=== PATIENT | female | born 1945 | race Caucasian/White ===

== ENCOUNTER 2016-07-13 14:46 | Emergency (ER) | payer OTHER ==
[2016-07-13 15:04] VITALS: BP 131/64
[2016-07-13] MEDS ORDERED: ZOFRAN ODT PO ONE (15:57)
[2016-07-13] MEDS ORDERED: NORCO-5 PO ONE (15:57)
--- NOTE | 2016-07-13 16:02 | PROVIDER DOCUMENTATION ---
HPI-Musculoskeletal Pain/Inj - GENERAL Chief Complaint: Fall Stated Complaint: FALL/HIP PAIN Time Seen by Provider: 07/13/16 15:18 Source: patient - HX OF PRESENT ILLNESS-MUSKULOSKELTAL Nature of Presenting Problem: This pt presents today c complaints of R sided hip pain and bruising after a fall earlier this morning. She reports that she is ambulating but it hurts. No abnormal leg rotation or positioning. No loss of motor function or sensation. She denies any head injury or neck pain. She denies taking blood thinners. No other issues or complaints. Quality of Pain: reports: aching, sharp Severity in ED: moderate Onset/Duration: this morning Timing: still present Modifying Factors: improves with: movement, palpation Any recent injury?: Yes Locality of Occurance: Home Similar Symptoms Previously?: No Recently seen or treated by another doctor?: No Review of Systems - Adult - REVIEW OF SYSTEMS - ADULT Constitutional: reports: no symptoms reported. denies: chills, fever Eyes: reports: no symptoms reported. denies: discharge, dry eyes Ears, Nose, Mouth & Throat: reports: no symptoms reported. denies: ear discharge, ear pain Cardiovascular: reports: no symptoms reported. denies: chest pain, edema Respiratory: reports: no symptoms reported. denies: chronic cough, cough Gastrointestinal: reports: no symptoms reported. denies: abdominal pain, hematemesis Genitourinary: reports: no symptoms reported. denies: dysuria, discharge Musculoskeletal: reports: bone pain, joint pain. denies: back pain, muscle weakness, neck pain Integumentary: reports: see HPI. denies: hives, hair loss Neurological: reports: no symptoms reported. denies: ataxia, dizziness/vertigo , headache/migraines, syncope Psychiatric: reports: no symptoms reported. denies: anxiety, anti-depressant use Endocrine: reports: no symptoms reported Hematologic/Lymphatic: reports: no symptoms reported Allergic/Immunologic: reports: no symptoms reported All Other Systems: Reviewed and Negative Past History - Adult - PAST MEDICAL HISTORY-ADULT Review of Records: reports: Old Records Reviewed, Nursing Assessment Review, Medications Reviewed, Social history reviewed & non-contributory. Major Childhood Illnesses: reports: denies history Cardiovascular: reports: HTN, hyperlipidemia Respiratory: reports: denies history Gastrointestinal: reports: cholelithiasis Obstetrical/Gynecological: reports: denies history Genitourinary: reports: denies history Musculoskeletal: reports: denies history Neurological: reports: denies history Psychiatric: reports: bipolar, depression Endocrine/Immune: reports: denies history Other Conditions: reports: denies history - PRIOR SURGERIES/PROCEDURES Surgical/Procedure History: reports: cholecystectomy - IMMUNIZATION STATUS Childhood Immunizations: See Nurse Assessment Flu Vaccine: See Nurse Assessment Physical Exam-Injury Related - Physical Exam-Injury Related Initial Vital Signs Reviewed: Yes General Appearance: appears well, alert, no apparent distress Eyes: PERRL/EOMI, pink conjunctivae Head, Ears, Nose, Mouth & Throat: normocephalic/atraumatic, moist mucous membranes, normal ENT inspection Neck: non-tender, full range of motion, supple, normal inspection. negative: pain with axial compression, C-spine tenderness, limited range of motion, muscle spasm, pain on movement, vertebral point tenderness Respiratory: chest non-tender, lungs clear, normal breath sounds, no pleuratic chest pain, no respiratory distress, no accessory muscle use. negative: respiratory distress, decreased breath sounds, accessory muscle use, crackles, rales, rhonchi, stridor, wheezing Cardiovascular: normal peripheral pulses, regular rate, rhythm, no edema, no gallop, no JVD, no murmur. negative: bradycardia, tachycardia Abdominal Exam: normal bowel sounds, non tender, soft Back Exam: no CVA tenderness, no vertebral tenderness, scoliosis. negative: muscle spasm, vertebral tenderness Extremity: normal range of motion, swelling, tenderness. negative: pulse deficit, pedal edema Integumentary: warm/dry, blanching, contusion(s) Neurologic: grossly normal, no motor/sensory deficits. negative: facial droop, focal weakness, motor weakness, sensory deficit Psych/Mental Status: normal mood/affect, normal thought content, normal thought process, oriented x 3 Progress - PLAN OF CARE/RESULTS Progress/Plan/Lab Results: Orders Category Date Time Status XRAY PELVIS W/HIP 2-3VW RT [RAD] Stat Exams 07/13/16 15:05 Taken Hydrocodone/APAP 5 mg/325 mg [[place]-5] Med 07/13/16 15:57 Discontinued 1 each PO NOW ONE Ondansetron Odt [Zofran Odt] Med 07/13/16 15:57 Discontinued 4 mg PO NOW ONE Vital Signs Temp Pulse Resp BP Pulse Ox 07/13/16 15:03 98.0 F 83 16 131/64 99 Corticosteroids (Glucocorticoids) Allergy (Unknown, Verified 07/13/16 16:11) Unknown "STEROIDS", does not mix with other medications Bupropion S.r. [Wellbutrin Sr] 150 mg PO BID 11/20/14 Calcium Carbonate/Vitamin D3 [Calcium 600 + D Tablet] 1 tab PO BID 11/20/14 Divalproex E.r. [Depakote ER] 500 mg PO QHS 11/20/14 Docusate Sodium [Colace] 200 mg PO QHS 11/20/14 Fenofibric Acid D.r. [Trilipix] 135 mg PO DAILY 11/20/14 Multivitamin [Multi-Vitamin Daily] 1 tab PO QAM 11/20/14 Omeprazole 40 mg PO QAM 11/20/14 Venlafaxine HCl [Venlafaxine HCl ER] 150 mg PO DAILY 11/20/14 Carbamazepine [Epitol] 200 mg PO BID 02/13/16 Losartan Potassium 50 mg PO DAILY 02/13/16 Levothyroxine [Synthroid] 137 microgm PO DAILY #0 02/15/16 Polyethylene Glycol 3350 [Miralax] 17 gm PO QAM #0 powder, packet 02/15/16 Potassium Chloride E.r. [Klor-Con] 20 meq PO DAILY #0 tablet 02/15/16 Rivastigmine [Exelon 4.6MG/24Hrs] 1 each TD DAILY #0 patch 02/15/16 - XRAY 1 XRAY: Right XRAY Study: Pelvis, Hip XRAY Interpretation: no fx Departure - Departure Time of Disposition Order: 16:21 DIAGNOSIS: Contusion, hip and thigh Qualifiers: Encounter type: initial encounter Laterality: right Qualified Code(s): S70.01XA - Contusion of right hip, initial encounter; S70.11XA - Contusion of right thigh, initial encounter Disposition: HOME 01 Certified Medical Emergency: Urgent Condition: Good Additional Instructions: Take medication as prescribed. Follow up with an orthopedist as needed. Rest, ice and elevate leg. ED Follow Up Instructions: You have been treated by a care provider in the Emergency Department. These instructions are being provided to you so you can have an understanding of how to care for yourself upon discharge. Upon discharge from the Emergency Department, you are responsible for making arrangements for follow-up care by a physician of your choice. Take all prescribed medications as directed. Return to the Emergency Department immediately for any new or worsening symptoms. You may call the Physician Referral phone number at [phone] to obtain a list of Physicians who are taking new patients. Prescriptions: Orphenadrine [Norflex] 100 mg PO BID #14 tablet Acetaminophen with Codeine [Tylenol with Codeine #3] 1 each PO Q4H PRN PRN #12 tablet PRN Reason: Pain Referrals: Alexys Nunes MD [Primary Care Provider] - Dez Pham MD [STAFF PHYSICIAN] - Attestation - Physician/ MARA Attestation Patient care was provided by Advanced Practice Provider:: Yes Advanced Practice Provider:: Ramin Zarate Advanced Practice Provider documentation review:: The Mid-level provider documentation, treatment plan and medical decision making was reviewed by the physician who agrees with all treatment and medical decision making by the MLP.
--- NOTE | 2016-07-13 18:06 | Diag Imaging Result Document ---
PROCEDURE NAME: XRAY PELVIS W/HIP 2-3VW RT - 07/13/2016 STUDY: Pelvis and right hip, 2 views. No fracture. No dislocation. IMPRESSION: No acute bony injury.
== END 2016-07-13 17:14 | disposition home or self-care (01) ==
LOC: ED 14:46
DX: S70.01XA Contusion of right hip, initial encounter (principal); S70.11XA Contusion of right thigh, initial encounter; M25.551 Pain in right hip; M41.9 Scoliosis, unspecified; I10 Essential (primary) hypertension; E78.5 Hyperlipidemia, unspecified; F32.9 Major depressive disorder, single episode, unspecified; Z79.899 Other long term (current) drug therapy; W01.0XXA Fall on same level from slipping, tripping and stumbling without subsequent striking against object, initial encounter
CPT/HCPCS: 99283

== ENCOUNTER 2016-08-30 14:11 | Inpatient (IN) ==
[2016-08-30 15:04] LABS: URINE MICRO REVIEW NEEDED? NO; URINE SOURCE CLEAN CATCH
[2016-08-30 15:13] LABS: BILIRUBIN URINE NEGATIVE (NEGATIVE); BLOOD URINE NEGATIVE (NEGATIVE); COLOR YELLOW; GLUCOSE URINE NEGATIVE (NEGATIVE); LEUKOCYTES URINE MODERATE (NEGATIVE); NITRITE URINE NEGATIVE (NEGATIVE); PH URINE 6.5; PROTEIN URINE NEGATIVE (NEGATIVE); SP GRAVITY URINE 1.011; TURBIDITY URINE CLEAR (CLEAR); UROBILINOGEN URINE NORMAL (NORMAL)
[2016-08-30 15:15] LABS: UR EPITHELIAL CELLS <10 /HPF (<10); URINE BACTERIA NEGATIVE /HPF; URINE CULTURE NEEDED? YES; URINE RBC <10 /HPF (<10); URINE WBC <10 /HPF (<10)
[2016-08-30 15:27] LABS: MANUAL DIFF NEEDED? NO
[2016-08-30 15:32] LABS: BASO% 0.3 % (0.0-0.8); EOS# 0.07 X1000 (0.0-0.7); EOS% 1.9 % (0.0-10.0); HEMATOCRIT 36.3 % (37.0-47.0); HEMOGLOBIN 12.1 g/dL (12.0-16.0); LYMPH# 1.76 X1000 (1.2-3.4); LYMPH% 48.5 % (20.5-51.1); MCH 31.3 PG (27-31); MCHC 33.3 g/dL (33-37); MCV 93.8 FL (81-99); MONO# 0.51 X1000 (0.11-0.59); NEUT% 35.3 % (42.2-75.2); PLT 262 X1000 (130-400); RBC 3.87 XMIL (4.2-5.4)
[2016-08-30 16:07] LABS: AGAP 13; ALBUMIN 3.9 g/dL (3.5-5.0); ALKALINE PHOSPHATASE 42 U/L (32-104); BUN 13 mg/dL (8-22); CALCIUM 9.1 mg/dL (8.8-10.2); CHLORIDE 102 mmol/L (98-107); COSMO 278; GOT 23 U/L (10-30); GPT 15 U/L (10-36); MAGNESIUM 1.8 mg/dL (1.5-2.7); POTASSIUM 3.7 mmol/L (3.5-5.1); SODIUM 139 mmol/L (136-145); TCO2 24 mmol/L (25-35); TOTAL PROTEIN 6.3 g/dL (6.3-8.3)
[2016-08-30 16:27] LABS: FREE T4 1.35 ng/dL (0.93-1.70)
[2016-08-30 16:34] LABS: ACETAMINOPHEN < 1.2 ug/mL (10-30)
[2016-08-30] MEDS ORDERED: ROCEPHIN 1 GM/NS 1 GM/50 ML IVPB IV ONE (17:06)
--- NOTE | 2016-08-30 17:07 | PROVIDER DOCUMENTATION ---
This chart was entered by Debbie Huddleston Scribe, acting as scribe for Shyanne Israel MD. HPI-Psychological Disorder - General Chief Complaint: Psych Stated Complaint: DEPRESSED Time Seen by Provider: 08/30/16 14:49 Source: patient Allergies/Adverse Reactions: Patient Allergies Allergy/AdvReac Type Severity Reaction Status Date / Time Corticosteroids Allergy Unknown Unknown Verified 08/30/16 15:24 (Glucocorticoids) Home Medications: Home Medication List Medication Instructions Recorded Confirmed Last Taken Type Bupropion S.r. [Wellbutrin Sr] 150 mg PO BID 11/20/14 08/30/16 08/30/16 08:30 History Calcium Carbonate/Vitamin D3 1 tab PO BID 11/20/14 08/30/16 08/30/16 08:30 History [Calcium 600 + D Tablet] Divalproex E.r. [Depakote ER] 500 mg PO QHS 11/20/14 08/30/16 08/29/16 19:30 History Docusate Sodium [Colace] 200 mg PO QHS 11/20/14 08/30/16 08/28/16 History Fenofibric Acid D.r. [Trilipix] 135 mg PO DAILY 11/20/14 08/30/16 08/30/16 08: 30 History Multivitamin [Multi-Vitamin Daily] 1 tab PO QAM 11/20/14 08/30/16 08/30/16 08: 30 History Omeprazole 40 mg PO QAM 11/20/14 08/30/16 08/30/16 08:30 History Venlafaxine HCl [Venlafaxine HCl 150 mg PO DAILY 11/20/14 08/30/16 08/30/16 08: 30 History ER] Carbamazepine [Epitol] 200 mg PO BID 02/13/16 08/30/16 07/12/16 08:00 History Losartan Potassium 50 mg PO DAILY 02/13/16 08/30/16 08/30/16 08:30 History Levothyroxine [Synthroid] 137 microgm PO DAILY #0 02/15/16 08/30/16 08/30/16 08 :30 Rx Potassium Chloride E.r. [Klor-Con] 20 meq PO DAILY #0 tablet 02/15/16 08/30/16 08/30/16 08:30 Rx Loperamide [Imodium] 2 mg PO BID #10 capsule 08/29/16 08/30/16 08/29/16 19:30 Rx Ondansetron Odt [Zofran 4 mg Odt] 4 mg PO Q6H PRN PRN #10 tablet 08/29/1608/29/16 20:00 Rx Aspirin [Aspirin EC] 81 mg PO DAILY 08/30/16 08/30/16 08/30/16 08:30 History Divalproex Sodium [Divalproex 500 mg PO 08/30/16 Unknown History Sodium ER] Donepezil HCl 10 mg PO 08/30/16 08/30/16 08:30 History Hydrochlorothiazide 12.5 mg PO 08/30/16 Unknown History - History of Present Illness-Psych Nature of Presenting Problem: PT is a 71 yof who came to the ED with a cc of depression. Pt reports that since she has been sick she hasn't been able to take her antidepressants. Pt reports she can't make her thoughts stop. Onset/Duration: reports: this morning Timing: reports: still present Severity: reports: mild Situational problems related to:: reports: N/A Psychiatric Complaints: reports: depressed Substance Use: reports: none/never Similar Symptoms Previously?: Yes Recently seen or treated by another doctor?: Yes Review of Systems - Adult - REVIEW OF SYSTEMS - ADULT Constitutional: denies: chills, fever Eyes: reports: no symptoms reported Ears, Nose, Mouth & Throat: denies: epistaxis, mouth swelling Cardiovascular: reports: no symptoms reported Respiratory: reports: no symptoms reported Gastrointestinal: denies: diarrhea, nausea, vomiting Genitourinary: reports: no symptoms reported Musculoskeletal: reports: no symptoms reported Integumentary: reports: no symptoms reported Neurological: reports: no symptoms reported Psychiatric: reports: anxiety, depression. denies: emotional problems, suicidal thoughts Endocrine: reports: no symptoms reported Hematologic/Lymphatic: reports: no symptoms reported Allergic/Immunologic: reports: no symptoms reported All Other Systems: Reviewed and Negative Past History - Adult - PAST MEDICAL HISTORY-ADULT Review of Records: reports: Nursing Assessment Review Major Childhood Illnesses: reports: denies history Cardiovascular: reports: HTN, hyperlipidemia Respiratory: reports: denies history Gastrointestinal: reports: cholelithiasis Obstetrical/Gynecological: reports: denies history Genitourinary: reports: denies history Musculoskeletal: reports: denies history Neurological: reports: denies history Psychiatric: reports: bipolar, depression Endocrine/Immune: reports: thyroid disorder Other Conditions: reports: denies history - PRIOR SURGERIES/PROCEDURES Surgical/Procedure History: reports: cholecystectomy, back/neck (back) - IMMUNIZATION STATUS Childhood Immunizations: See Nurse Assessment Flu Vaccine: See Nurse Assessment - FAMILY HISTORY Family History: reviewed, not pertinent Physical Exam-Psych Focus - Physical Exam-Psych Initial Vital Signs Reviewed: Yes Appearance: no apparent distress, no memory impairment, alert, anxious Neurological: alert, calm Behavior/Eye Contact/Speech: cooperative HENMT: normocephalic/atraumatic, moist mucous membranes Neck: non-tender Respiratory: chest non-tender, lungs clear Cardiovascular: normal peripheral pulses, regular rate, rhythm Abdominal Exam: normal bowel sounds, non tender, soft Back Exam: normal inspection Extremity: normal range of motion, non-tender Integumentary: normal color Progress - PLAN OF CARE/RESULTS Progress/Plan/Lab Results: Vital Signs - 8 hr 08/30/16 14:15 Temperature 97.8 F Pulse Rate 71 Respiratory Rate 16 Blood Pressure 161/69 O2 Sat by Pulse Oximetry 99 Laboratory Results - last 24 hr 08/30/16 08/30/16 08/30/16 14:36 15:18 15:18 WBC 3.63 L RBC 3.87 L Hgb 12.1 Hct 36.3 L MCV 93.8 MCH 31.3 H MCHC 33.3 RDW Std Deviation 12.4 Plt Count 262 MPV 10.0 Immature Gran % (Auto) 0.0 Neut % (Auto) 35.3 L Lymph % (Auto) 48.5 [place] % (Auto) 14.0 H Eos % (Auto) 1.9 Baso % (Auto) 0.3 Immature Gran # (Auto) 0.00 Neut # (Auto) 1.28 L Lymph # (Auto) 1.76 [place] # (Auto) 0.51 Eos # (Auto) 0.07 Baso # (Auto) 0.01 Sodium 139 Potassium 3.7 Chloride 102 Carbon Dioxide 24 L Anion Gap 13 BUN 13 Creatinine 0.6 Estimated GFR/1.73 m2 > 60 BUN/Creatinine Ratio 22 Glucose 99 Calculated Osmolality 278 Calcium 9.1 Magnesium 1.8 Total Bilirubin 0.20 AST 23 ALT 15 Alkaline Phosphatase 42 Troponin T Total Protein 6.3 Albumin 3.9 Globulin 2.4 Albumin/Globulin Ratio 1.6 Vitamin B12 TSH Free T4 Urine Source CLEAN CATCH Urine Color YELLOW Urine Turbidity CLEAR Urine pH 6.5 Ur Specific [place] 1.011 Urine Protein NEGATIVE Ur Glucose (Stick) NEGATIVE Ur Ketones (Stick) NEGATIVE Urine Blood NEGATIVE Urine Nitrite NEGATIVE Urine Bilirubin NEGATIVE Urobilinogen Dipstick NORMAL Urine Leukocytes MODERATE A Urine WBC (Auto) <10 Urine RBC (Auto) <10 U Epithel Cells (Auto) <10 Urine Bacteria (Auto) NEGATIVE Salicylates Acetaminophen RPR 08/30/16 08/30/16 08/30/16 15:18 15:18 15:18 WBC RBC Hgb Hct MCV MCH MCHC RDW Std Deviation Plt Count MPV Immature Gran % (Auto) Neut % (Auto) Lymph % (Auto) [place] % (Auto) Eos % (Auto) Baso % (Auto) Immature Gran # (Auto) Neut # (Auto) Lymph # (Auto) [place] # (Auto) Eos # (Auto) Baso # (Auto) Sodium Potassium Chloride Carbon Dioxide Anion Gap BUN Creatinine Estimated GFR/1.73 m2 BUN/Creatinine Ratio Glucose Calculated Osmolality Calcium Magnesium Total Bilirubin AST ALT Alkaline Phosphatase Troponin T Total Protein Albumin Globulin Albumin/Globulin Ratio Vitamin B12 600 TSH 1.03 Free T4 1.35 Urine Source Urine Color Urine Turbidity Urine pH Ur Specific [place] Urine Protein Ur Glucose (Stick) Ur Ketones (Stick) Urine Blood Urine Nitrite Urine Bilirubin Urobilinogen Dipstick Urine Leukocytes Urine WBC (Auto) Urine RBC (Auto) U Epithel Cells (Auto) Urine Bacteria (Auto) Salicylates < 3.00 L Acetaminophen < 1.2 L RPR NON-REACTIVE 08/30/16 15:18 WBC RBC Hgb Hct MCV MCH MCHC RDW Std Deviation Plt Count MPV Immature Gran % (Auto) Neut % (Auto) Lymph % (Auto) [place] % (Auto) Eos % (Auto) Baso % (Auto) Immature Gran # (Auto) Neut # (Auto) Lymph # (Auto) [place] # (Auto) Eos # (Auto) Baso # (Auto) Sodium Potassium Chloride Carbon Dioxide Anion Gap BUN Creatinine Estimated GFR/1.73 m2 BUN/Creatinine Ratio Glucose Calculated Osmolality Calcium Magnesium Total Bilirubin AST ALT Alkaline Phosphatase Troponin T < 0.010 Total Protein Albumin Globulin Albumin/Globulin Ratio Vitamin B12 TSH Free T4 Urine Source Urine Color Urine Turbidity Urine pH Ur Specific [place] Urine Protein Ur Glucose (Stick) Ur Ketones (Stick) Urine Blood Urine Nitrite Urine Bilirubin Urobilinogen Dipstick Urine Leukocytes Urine WBC (Auto) Urine RBC (Auto) U Epithel Cells (Auto) Urine Bacteria (Auto) Salicylates Acetaminophen RPR Orders Category Date Time Status Saline Loc NOW Care 08/30/16 15:37 Active ACETAMINOPHEN [TDM] Stat Lab 08/30/16 15:18 Completed CBC WITH ELECTRONIC DIFF [HEME] Stat Lab 08/30/16 15:18 Completed COMPREHENSIVE METABOLIC PANEL [CHEM] Stat Lab 08/30/16 15:18 Completed FOLATE Stat Lab 08/30/16 15:18 Received FREE T4 Stat Lab 08/30/16 15:18 Completed MAGNESIUM [CHEM] Stat Lab 08/30/16 15:18 Completed RPR [SERO] Stat Lab 08/30/16 15:18 Completed SALICYLATES [TDM] Stat Lab 08/30/16 15:18 Completed TROPONIN T Stat Lab 08/30/16 15:18 Completed TSH Stat Lab 08/30/16 15:18 Completed URINALYSIS W/POSS RFLX CULT-1 [URINALYSIS] Stat Lab 08/30/16 14:36 Completed URINE CULTURE [RM] Routine Lab 08/30/16 15:16 Received VITAMIN B12 Stat Lab 08/30/16 15:18 Completed Rocephin 1 gm/Ns IV Now Med 08/30/16 17:06 Ordered CefTRIAXONE 1 GM/NS [Rocephin 1 gm/Ns] 1 gm in 50 ml IV NOW EKG [EKG] Stat Ther 08/30/16 14:45 Ordered Result Diagrams: 08/30/16 15:18 08/30/16 15:18 - CONSULTS/PCP/HOSPITALIST Notification Time Discussed: 17:06 Reason/Comments: Admit to Dr. Echevarria Consult Disposition: Admit Departure - Departure Time of Disposition Decision: 17:06 DIAGNOSIS: UTI (urinary tract infection) Qualifiers: Urinary tract infection type: acute cystitis Hematuria presence: without hematuria Qualified Code(s): N30.00 - Acute cystitis without hematuria Altered mental status Qualifiers: Altered mental status type: unspecified Qualified Code(s): R41.82 - Altered mental status, unspecified Disposition: ADMITTED INPATIENT Certified Medical Emergency: Emergent Condition: Stable Referrals and Follow-Ups: Alexys Nunes MD [Primary Care Provider] - - Critical Care Note This patient required my direct personal management.: No This chart was documented by the indicated scribe, (Debbie Huddleston Scribe) and accurately reflects the services I performed and decisions made by me, Shyanne Israel MD, as attested by the provider's signature.
[2016-08-30] MEDS ORDERED: ZOFRAN ODT PO PRN (19:33)
[2016-08-30] MEDS ORDERED: PROTONIX IV SCH (19:45)
[2016-08-30] MEDS ORDERED: SODIUM CHLORIDE 0.9% INJ SCH (19:45)
[2016-08-30] MEDS ORDERED: ATIVAN IV ONE (20:02)
--- NOTE | 2016-08-30 20:54 | HISTORY AND PHYSICAL ---
ATTENDING PHYSICIAN: Dr. Nunes. CHIEF COMPLAINT: Altered mental status. Depression. Gastroenteritis. UTI symptoms. HISTORY OF PRESENT ILLNESS: She is a 71-year-old white female, was seen yesterday for abdominal pain, nausea, vomiting, diarrhea, possible UTI. Patient was seen by Dr. Benavides. Sent home on loperamide and symptomatic treatment. Family brought her back today with altered mental status. Not able to do anything at home. She lives by herself. She has been suffering from chronic bipolar disorder with depression under the care of Dr. Morel. The family was afraid to take her home. Basically admitted to the hospital with altered mental status, #1 IV fluids, IV antibiotics and also needs psych consult. Upon questioning patient denies of any symptoms. PAST MEDICAL HISTORY: Bipolar disorder, hyperlipidemia, acid reflux disease, hypertension, hypothyroidism, mild cognitive impairment, history of trigeminal neuralgia. PAST SURGICAL HISTORY: Reported left breast lumpectomy, thyroidectomy, back surgery. MEDICATIONS ARE: Wellbutrin 150 p.o. b.i.d., Effexor 150 daily, Colace 100 two tablets at bedtime, Trilipix 135 daily, Depakote 500 bedtime, Depakote 500 p.o. b.i.d., aspirin 81 mg daily, Aricept 10 daily, hydrochlorothiazide 12.5 daily, Synthroid 137 mcg daily , carbamazepine 200 p.o. b.i.d., Prilosec 40 daily, losartan 50 daily, multivitamin 1 tablet daily. ALLERGIES: Corticosteroid. SOCIAL HISTORY: Single, lives in [place], retired. No smoking. No alcohol. from lung cancer 4 years ago. She has 1 son. FAMILY HISTORY: Both parents of old age. REVIEW OF SYSTEMS: HEENT: No headache. No vision problem. No earache. No sore throat. Neck: No goiter. No lymphadenopathy. No bruit. Cardiopulmonary: No chest pain, shortness of breath, PND, orthopnea. GI: No nausea, vomiting, abdominal pain. : No dysuria, hesitancy, frequency, hematuria. No swelling of legs. No joint pain. Neurologic: No focal symptoms or weakness. EXAMINATION: Vitals: Stable, afebrile, blood pressure slightly running high 160/64, 5 feet 5, 160 pounds, pulse oximetry 99% on room air. HEENT: Atraumatic, normocephalic. Pupils equal, react to light. TMs are normal. Nose and throat within normal limits. Neck: Supple. No lymphadenopathy. No goiter. Thyroid scar present. Chest: Clear to auscultation. Heart: Sounds are regular. Belly: Soft, nontender. No signs of peritonitis. Umbilical hernia noted. Extremities: No peripheral edema, cyanosis, clubbing. Neuro: No obvious neurological deficits. INVESTIGATIONS: CBC. White cell count 3.6, hematocrit 36, platelet 262,000. SMA 7 is normal. LFTs were normal. Folate 35.8, B12 is normal. Thyroid function normal. Urinalysis is moderate leukocytes. Salicylate, acetaminophen normal, RPR nonreactive. Abdomen x-ray is stable. ASSESSMENT AND PLAN: 1. 71-year-old white female admitted to the hospital with altered mental status due to gastroenteritis, possible urinary tract infection, was treating outpatient, not able to improve impending dehydration. IV fluids. 2. Deep vein thrombosis prophylaxis with Lovenox. 3. Gastrointestinal prophylaxis with IV Protonix. 4. History of bipolar disorder and depression under Dr. Morel. Check the levels of Depakote. Psych consult. 5. Trigeminal neurology on carbamazepine. 6. Hypothyroidism on Synthroid on 137 mcg once a day. Normal thyroid function tests. 7. Reconcile home medications and discussed with the patient's son and daughter- in-law at bedside and will follow up and Dr. Nunes is also follow up on Thursday. cc: MD Alexys Patterson MD [facility]
[2016-08-30] MEDS ORDERED: DEPAKOTE ER PO SCH (21:00)
[2016-08-30] MEDS ORDERED: COLACE PO SCH (21:00)
[2016-08-30] MEDS: DEPAKOTE ER PO SCH (21:29)
[2016-08-30] MEDS: WELLBUTRIN SR PO SCH (21:29)
[2016-08-30] MEDS: NS 1,000 ML IV SCH (21:30)
[2016-08-30] MEDS: TEGRETOL PO SCH (21:30)
[2016-08-30] MEDS: CALTRATE 600 + D PO SCH (21:30)
[2016-08-31 05:53] LABS: MANUAL DIFF NEEDED? NO
[2016-08-31 05:59] LABS: BASO% 0.3 % (0.0-0.8); EOS% 2.6 % (0.0-10.0); HEMOGLOBIN 11.5 g/dL (12.0-16.0); LYMPH# 2.02 X1000 (1.2-3.4); LYMPH% 52.2 % (20.5-51.1); MCH 31.1 PG (27-31); MCHC 32.9 g/dL (33-37); MCV 94.6 FL (81-99); MONO# 0.59 X1000 (0.11-0.59); MONO% 15.2 % (1.7-9.3); MPV 9.8 FL (7.4-10.4); NEUT% 29.7 % (42.2-75.2); PLT 238 X1000 (130-400)
[2016-08-31 06:18] LABS: AGAP 12; BUN 12 mg/dL (8-22); CALCIUM 8.9 mg/dL (8.8-10.2); CHLORIDE 104 mmol/L (98-107); COSMO 283; SODIUM 142 mmol/L (136-145); TCO2 26 mmol/L (25-35)
[2016-08-31] MEDS ORDERED: SYNTHROID PO SCH (07:00)
[2016-08-31] MEDS: NS 1,000 ML IV SCH (08:15)
[2016-08-31] MEDS: CALTRATE 600 + D PO SCH (08:40)
[2016-08-31] MEDS: DEPAKOTE ER PO SCH (08:40)
[2016-08-31] MEDS: TEGRETOL PO SCH (08:41)
[2016-08-31] MEDS: WELLBUTRIN SR PO SCH (08:41)
[2016-08-31] MEDS ORDERED: HYDROCHLOROTHIAZIDE PO SCH (09:00)
[2016-08-31] MEDS ORDERED: EFFEXOR XR PO SCH (09:00)
[2016-08-31] MEDS ORDERED: COZAAR PO SCH (09:00)
[2016-08-31] MEDS ORDERED: LOVENOX SUBQ SCH (09:00)
[2016-08-31] MEDS ORDERED: TRILIPIX PO SCH (09:00)
[2016-08-31] MEDS ORDERED: ASPIRIN EC PO SCH (09:00)
[2016-08-31] MEDS ORDERED: THERA M PLUS PO SCH (09:00)
[2016-08-31] MEDS ORDERED: KLOR-CON PO SCH (09:00)
[2016-08-31] MEDS ORDERED: ARICEPT PO SCH (09:00)
[2016-08-31 11:18] VITALS: BP 142/53
--- NOTE | 2016-08-31 15:32 | PROGRESS NOTE ---
DATE: 08/31/2016 SUBJECTIVE: Last night patient was not able to sleep. I have given 1 mg of Ativan. She had good sleep. REVIEW OF SYSTEMS: No UTI symptoms. No gastroenteritis symptoms. Review of systems, none reported. PHYSICAL EXAMINATION: Vital signs: She is afebrile. Vitals are stable. Input and output are 811. HEENT: Within normal limits. Neck: Supple. No lymphadenopathy. Chest: Clear. Heart: Sounds are regular. Abdomen: Belly is soft, nontender. Good bowel sounds. No masses palpable. Extremities: No peripheral edema, cyanosis, clubbing. Neurologic: Nonfocal. Her affect is very flat and depressed. INVESTIGATIONS: CBC: White cell count 3.8, hematocrit 35, platelets 238,000. SMA7 is normal. Urine cultures were negative. ASSESSMENT AND PLAN: 1. Gastroenteritis, improving. 2. Dysuria, no evidence of infection. 3. Bipolar with depression, not able to improve with present medical regimen. Patient is medically stable. Discussed with patient's family. She will be [facility] to the [facility] today. Continue present medical therapy. LEVEL OF DOCUMENTATION: 35 minutes. cc: MD Alexys Patterson MD
[2016-08-31 22:28] LABS: MAGNESIUM 1.8 mg/dL (1.5-2.7)
== END 2016-08-31 18:27 ==
LOC: ED 14:11 → 4N 17:22
PROVIDERS: ADMIT Internal Medicine; ATTEND Internal Medicine

== ENCOUNTER 2018-07-07 15:19 | Observation (INO) ==
[2018-07-07] MEDS ORDERED: PROTONIX IV SCH (16:45)
[2018-07-07] MEDS ORDERED: SODIUM CHLORIDE 0.9% INJ SCH (16:45)
[2018-07-07] MEDS ORDERED: NS + KCL 20 MEQ 1,000 ML IV SCH ×2 (17:00→20:00)
--- NOTE | 2018-07-07 17:02 | EKG Report ---
Test Performed on : 07/07/2018 4:57:39 PM Test Reason : ABD PAIN Blood Pressure : / mmHG Vent. Rate : 077 BPM Atrial Rate : 077 BPM P-R Int : 182 ms QRS Dur : 086 ms QT Int : 370 ms P-R-T Axes : 045 055 065 degrees QTc Int : 418 ms Normal sinus rhythm. Normal ECG When compared with ECG of 01-SEP-2016 04:55, No significant change was found Unconfirmed Result
[2018-07-07 17:28] LABS: BASO# 0.02 X1000 (0.0-0.2); BASO% 0.3 % (0.0-0.8); EOS# 0.12 X1000 (0.0-0.7); EOS% 1.9 % (0.0-10.0); HEMATOCRIT 37.4 % (37.0-47.0); HEMOGLOBIN 12.4 g/dL (12.0-16.0); IMM GRAN# 0.04 X1000 (0.0-0.04); IMM GRAN% 0.6 % (0.0-0.5); LYMPH# 2.06 X1000 (1.2-3.4); LYMPH% 32.5 % (20.5-51.1); MCH 30.2 PG (27-31); MCHC 33.2 g/dL (33-37); MCV 91.2 FL (81-99); MONO% 11.1 % (1.7-9.3); MPV 9.6 FL (7.4-10.4); NEUT# 3.39 X1000 (1.4-6.5); NEUT% 53.6 % (42.2-75.2); PLT 346 X1000 (130-400); RDW 12.7 % (11.5-14.5); WBC 6.33 X1000 (4.8-10.8)
[2018-07-07 17:37] LABS: INR 0.99; PROTIME 13.9 Seconds (11.0-16.0)
[2018-07-07 17:38] LABS: PTT 27.9 Seconds (22.3-41.8)
[2018-07-07 17:40] LABS: AGAP 12; ALB/GLOB RATIO 1.8; ALKALINE PHOSPHATASE 113 U/L (32-104); BUN 11 mg/dL (8-22); CHLORIDE 97 mmol/L (98-107); COSMO 261; CREATININE 0.6 mg/dL (0.5-0.9); ESTIMATED GFR > 60; GLUCOSE 111 mg/dL (70-104); GOT 69 U/L (10-30); GPT 69 U/L (10-36); MAGNESIUM 1.6 mg/dL (1.5-2.7); SODIUM 130 mmol/L (136-145); TCO2 21 mmol/L (25-35); TOTAL BILIRUBIN 0.24 mg/dL (0.20-1.00); TOTAL PROTEIN 6.2 g/dL (6.3-8.3)
[2018-07-07] MEDS: FLAGYL 500 MG/NS 500 MG/100 ML IVPB IV SCH (17:56)
[2018-07-07] MEDS: COLACE PO SCH (20:41)
[2018-07-07] MEDS: CALTRATE 600 + D PO SCH (20:41)
[2018-07-07] MEDS: TEGRETOL PO SCH (20:41)
[2018-07-07] MEDS: ARICEPT PO SCH (20:41)
[2018-07-07] MEDS: LOPID PO SCH (20:41)
--- NOTE | 2018-07-07 20:55 | HISTORY AND PHYSICAL ---
CHIEF COMPLAINT: Diarrhea. HISTORY OF PRESENT ILLNESS: Ms. Saravia is a 73-year-old white female patient not doing well since Thursday. The patient went to stay with her son. She started having diarrhea multiple times, watery stool. There was no blood or mucus, according to the patient. No high-grade fever, questionable chills. The patient went multiple times. She took some Imodium. Her diarrhea got some better, but then when she started eating, diarrhea came back. The patient did have vague abdominal pain. Oral intake was poor. The patient was not taking even her medicine. Everything she was eating was coming out. The patient was feeling weak. She did have abdominal bloating, at times distention, vague abdominal pain. The patient was brought to the office for evaluation. I evaluated the patient. The patient seemed to have clinical dehydration. Also some tenderness in the right lower quadrant and colonic area, and I decided to admit the patient for observation and further care. According to the sister, her stool had bad odor, and she was concerned about C. difficile colitis. No dysuria or hematuria. No vaginal discharge. The patient did have abdominal distention and bloating, vague abdominal pain. Did have some chills but no documented fever. No typical chest pain, palpitations, orthopnea, or PND. No unusual cough, expectoration, or hemoptysis. The patient was complaining of dull headache. No runny nose, stuffy nose, sinus drainage. No heat or cold intolerance. No further history available at this time. ALLERGIES: Glucocorticoids. MEDICATIONS: Her home medication includes aspirin, calcium with vitamin D, carbamazepine, Colace, Aricept, Cymbalta, gemfibrozil, hydrochlorothiazide, Synthroid, Cozaar, Singulair, multivitamin, Zyprexa, Prilosec, potassium, and vitamin D. PAST MEDICAL HISTORY: 1. Hypertension. 2. Hyperlipidemia. 3. Mood disorder. 4. Gastritis and reflux disease. 5. Hypothyroidism. 6. Recurrent UTI. 7. Bipolar disorder. 8. Trigeminal neuralgia. PAST SURGICAL HISTORY: The patient had left breast lumpectomy, thyroidectomy, and back surgery. SOCIAL HISTORY: Single. Lives by herself. Her sister helps her significantly. Nonsmoker. Denied alcohol or substance abuse. FAMILY HISTORY: Significant for both the parents of old age. REVIEW OF SYSTEMS: As per HPI. PHYSICAL EXAMINATION: GENERAL APPEARANCE: An elderly white female patient in mild distress. VITAL SIGNS: Blood pressure 151/73, pulse 81, respirations 16, temperature 98.2 degrees. SKIN: Senile turgor. No rash or petechiae. HEENT: Head atraumatic, normocephalic. [place] conjunctivae. Anicteric sclerae. Extraocular muscle movement normal. Fundus cannot be penetrated. Good oral hygiene. Dry oral mucosa. No tonsillopharyngeal congestion or exudate. Ears and nose benign. NECK: Supple. No JVD, thyromegaly, or lymphadenopathy. CHEST: Bilateral good air entry present. No rales. Bibasilar crepitations. CARDIOVASCULAR: S1 and S2 heard. No gallop or thrill. ABDOMEN: Soft, globular. Mild distention. Bowel sounds present. The patient does have tenderness, right lower quadrant. No guarding or rigidity. RECTAL EXAM: Deferred. EXTREMITIES: No cyanosis or clubbing. Minimal swelling around ankle. No acute DVT. CENTRAL NERVOUS SYSTEM: Alert, awake. Able to move all 4 limbs. The patient does have tremors. No acute synovitis. LABORATORIES: Her lab data revealed hyponatremia. AST and ALT was 69, minimally elevated. Alkaline phosphatase 113. PT/INR 0.99, PTT 27.9. CBC: WBC count 6.33, hemoglobin 12.4, hematocrit 37.4. CONSIDERATION: 1. Diarrhea. 2. Colitis. 3. Clinical dehydration. The patient does have: 1. Hypertension. 2. Hyperlipidemia. 3. Hypothyroidism. 4. Bipolar disorder. 5. Low back pain. PLAN: Admit patient. IV hydration. Close observation. Continue home medicine. Check appropriate labs. We will check stool for C. difficile toxin. Started her on Flagyl. Overall plan discussed at length with patient and sister, and they are in agreement. cc: Alexys Nunes MD
[2018-07-07] MEDS ORDERED: THERA M PLUS PO SCH (21:00)
[2018-07-07] MEDS ORDERED: ZYPREXA PO SCH (21:00)
[2018-07-07 21:37] LABS: URINE SOURCE CLEAN CATCH
--- NOTE | 2018-07-07 21:50 | Diag Imaging Result Doc PS360 ---
EXAM: ABDOMEN FLAT/UPRIGHT HISTORY: ABD PAIN TECHNIQUE: Flat and upright, two views COMPARISON: None. FINDINGS: No free air beneath the diaphragm. The gallbladder has been removed. Nonspecific bowel gas pattern. No organomegaly. No foreign body. IMPRESSION: No acute abnormality identified. Electronically signed by Ryne Solorio 07/07/2018 9:48 PM
--- NOTE | 2018-07-07 21:58 | Diag Imaging Result Doc PS360 ---
EXAM: CHEST-2 VIEWS HISTORY: ABD PAIN TECHNIQUE: Chest two views COMPARISON: 05/05/2017 FINDINGS: The lungs are well expanded. The heart is not enlarged. The vessels are not distended. There are no infiltrates. No pleural effusions. Moderate scoliosis. There is a calcified granuloma in the right lung base. IMPRESSION: No acute abnormality. Electronically signed by Ryne Solorio 07/07/2018 9:56 PM
--- NOTE | 2018-07-07 22:12 | Diag Imaging Result Doc PS360 ---
EXAM: CT ABD/PELVIS W/IV CONT ONLY HISTORY: ABD PAIN TECHNIQUE: CT abdomen and pelvis with intravenous contrast COMPARISON: 01/14/2016 FINDINGS: The gallbladder has been removed. There is fatty infiltration of the liver. Normal spleen, pancreas, adrenal glands, and kidneys. No hydronephrosis. No aortic aneurysm. Moderate atherosclerosis. Normal appendix. No abscess. Nonspecific bowel gas pattern. The bowel loops are not dilated. No ascites. Urinary bladder is mild moderately distended. There are small uterine fibroids. Neither ovary is enlarged. IMPRESSION: 1.Fatty infiltration of the liver 2.Cholecystectomy 3.Small uterine fibroids This exam was performed using automated exposure control, adjustment of mA or kV according to patient size, and/or use of iterative reconstruction technique. Electronically signed by Ryne Solorio 07/07/2018 10:10 PM
[2018-07-07 22:24] LABS: BILIRUBIN URINE NEGATIVE (NEGATIVE); BLOOD URINE NEGATIVE (NEGATIVE); COLOR YELLOW; GLUCOSE URINE NEGATIVE (NEGATIVE); KETONE URINE NEGATIVE (NEGATIVE); LEUKOCYTES URINE TRACE (NEGATIVE); NITRITE URINE NEGATIVE (NEGATIVE); PROTEIN URINE NEGATIVE (NEGATIVE); TURBIDITY URINE CLEAR (CLEAR); UROBILINOGEN URINE NORMAL (NORMAL)
[2018-07-07 22:25] LABS: UR EPITHELIAL CELLS <10 /HPF (<10); URINE BACTERIA NEGATIVE /HPF; URINE RBC <10 /HPF (<10); URINE WBC <10 /HPF (<10)
[2018-07-08] MEDS: FLAGYL 500 MG/NS 500 MG/100 ML IVPB IV SCH ×2 (01:11→09:53)
[2018-07-08 06:22] LABS: BASO# 0.01 X1000 (0.0-0.2); BASO% 0.2 % (0.0-0.8); EOS# 0.16 X1000 (0.0-0.7); EOS% 3.2 % (0.0-10.0); HEMATOCRIT 35.5 % (37.0-47.0); HEMOGLOBIN 11.6 g/dL (12.0-16.0); IMM GRAN# 0.03 X1000 (0.0-0.04); IMM GRAN% 0.6 % (0.0-0.5); LYMPH# 2.15 X1000 (1.2-3.4); LYMPH% 42.5 % (20.5-51.1); MCHC 32.7 g/dL (33-37); MCV 91.7 FL (81-99); MONO# 0.65 X1000 (0.11-0.59); MONO% 12.8 % (1.7-9.3); MPV 9.6 FL (7.4-10.4); NEUT# 2.06 X1000 (1.4-6.5); NEUT% 40.7 % (42.2-75.2); PLT 316 X1000 (130-400); RBC 3.87 XMIL (4.2-5.4); RDW 12.9 % (11.5-14.5); WBC 5.06 X1000 (4.8-10.8)
[2018-07-08 06:45] LABS: CHOLESTEROL 92 mg/dL (0-200); HDL 32 mg/dL (45-65); LDL 49 mg/dL; TRIGLYCERIDES 56 mg/dL (35-135); VLDL 11 mg/dL
[2018-07-08 06:47] LABS: AGAP 12; ALB/GLOB RATIO 1.6; ALBUMIN 3.6 g/dL (3.5-5.0); ALKALINE PHOSPHATASE 97 U/L (32-104); BUN 10 mg/dL (8-22); CALCIUM 7.7 mg/dL (8.8-10.2); CHLORIDE 103 mmol/L (98-107); COSMO 270; CREATININE 0.4 mg/dL (0.5-0.9); ESTIMATED GFR > 60; GLUCOSE 87 mg/dL (70-104); GOT 57 U/L (10-30); GPT 56 U/L (10-36); POTASSIUM 4.1 mmol/L (3.5-5.1); SODIUM 136 mmol/L (136-145); TCO2 21 mmol/L (25-35); TOTAL BILIRUBIN 0.21 mg/dL (0.20-1.00); TOTAL PROTEIN 5.8 g/dL (6.3-8.3)
--- NOTE | 2018-07-08 06:52 | PROGRESS NOTE ---
DATE: 07/08/2018 SUBJECTIVE: Ms. Saravia is feeling better. Her abdominal pain and diarrhea improved. Patient claims she has not had any bowel movement since she has been in the hospital. No nausea or vomiting. The patient does feel hungry. No high-grade fever or chills. No typical chest pain. OBJECTIVE: Vital Signs: Her vital signs noted. Neck: Supple. No JVD. Lungs: Bilateral good air entry present. CVS: S1 and S2 heard. Abdomen: Soft, nontender. Bowel sounds present. Extremities: No cyanosis, clubbing. No acute DVT. SOD STRIPPER: Alert, awake. Able to move all 4 limbs. Laboratory Data: CBC done this morning reviewed. Her CT scan was unremarkable. It did show fatty infiltration of the liver, cholecystectomy, small uterine fibroid. Chest x-ray and abdominal x-ray results reviewed. ASSESSMENT AND PLAN: I am going to advance her diet. Stop intravenous fluid. Ambulate the patient in the room and hallway. If clinical condition permits, I am planning to discharge patient home this afternoon. Encourage oral hydration. cc: Alexys Nunes MD
[2018-07-08] MEDS ORDERED: CYMBALTA PO SCH (09:00)
[2018-07-08] MEDS ORDERED: ASPIRIN PO SCH (09:00)
[2018-07-08] MEDS ORDERED: SINGULAIR PO SCH (09:00)
[2018-07-08] MEDS ORDERED: COZAAR PO SCH (09:00)
[2018-07-08] MEDS ORDERED: SYNTHROID PO SCH ×2 (09:00)
[2018-07-08] MEDS ORDERED: KLOR-CON PO SCH (09:00)
[2018-07-08] MEDS ORDERED: HYDROCHLOROTHIAZIDE PO SCH (09:00)
[2018-07-08] MEDS: TEGRETOL PO SCH (09:50)
[2018-07-08] MEDS: COLACE PO SCH (09:51)
[2018-07-08] MEDS: ARICEPT PO SCH (09:51)
[2018-07-08] MEDS: LOPID PO SCH (09:51)
[2018-07-08] MEDS: CALTRATE 600 + D PO SCH (09:51)
[2018-07-08 12:53] VITALS: BP 133/56
--- NOTE | 2018-07-08 16:33 | PROGRESS NOTE ---
DATE: 07/08/2018 SUBJECTIVE: Ms. Saravia is doing better. Denied any diarrhea. Tolerating food well. No abdominal pain, nausea, no fever or chills. OBJECTIVE: Vital signs: Noted, which is stable. Neck: Supple. No JVD. Lungs: Clear. Heart: S1 and S2 heard. Abdomen: Soft, globular. Bowel sounds present. LEADERSHIP DEVELOPMENT CONSULTANT: Alert, awake, able to move all 4 limbs. The patient labs and medications noted. Overall patient is doing better. Lipid panel results reviewed. Discussed with the patient and her sister. The patient is eager to go home and we will discharge patient home today. Carbamazepine level was 5.7. Overall discharge condition satisfactory. Continue home medicine. I will discharge her home on Tegretol. Follow up with me in 1 week. In case of more distress, call us back or go to emergency room. cc: Alexys Nunes MD
[2018-07-11] MEDS ORDERED: VITAMIN D PO SCH (09:00)
== END 2018-07-08 15:58 | disposition home or self-care (01) ==
LOC: INTOOBSV 15:19 → DIRADM 15:19 → 4N 16:16
PROVIDERS: ADMIT Internal Medicine; ATTEND Internal Medicine
CPT/HCPCS: 71020; 71046; 74019; 74020; 74177; 80053; 80061; 80156; 81001; 82948; 83735; 85025; 85610; 85730; 87040; 87088; 93005; 93010; 94761; 96365; 96376; A9270; C9113; G0378; J3480; Q9967; S0030; S0164; XXXXX

== ENCOUNTER 2019-07-14 15:15 | Inpatient (IN) ==
[2019-07-14] MEDS: ROCEPHIN 1 GM in NS 50 ML IV SCH (18:41)
[2019-07-14] MEDS: SODIUM CHLORIDE 0.9% INJ SCH (18:41)
[2019-07-14] MEDS: PROTONIX IV SCH (18:41)
[2019-07-14] MEDS: NS 1,000 ML IV SCH (18:42)
--- NOTE | 2019-07-14 20:26 | Diag Imaging Result Doc PS360 ---
CT HEAD W/O CONTRAST - 07/14/2019 INDICATION: encephalopathy COMPARISON: 02/13/2016 FINDINGS: Stable cerebral atrophy. There is an old lacunae in the periventricular right cerebral white matter. No intracranial mass or hemorrhage. The skull is intact. The sinuses, mastoids, and middle ears are clear. IMPRESSION: No acute process. This exam was performed using automated exposure control, adjustment of mA or kV according to patient size, and/or use of iterative reconstruction technique Electronically signed by Ludwin García 07/14/2019 8:24 PM
[2019-07-14] MEDS: TEGRETOL PO SCH (21:07)
[2019-07-14] MEDS: ZYPREXA PO SCH (21:07)
[2019-07-14] MEDS: LOPID PO SCH (21:08)
[2019-07-14] MEDS: COLACE PO SCH (21:08)
[2019-07-14] MEDS: CALTRATE 600 + D PO SCH (21:08)
[2019-07-14] MEDS: THERA M PLUS PO SCH (21:13)
--- NOTE | 2019-07-14 21:37 | HISTORY AND PHYSICAL ---
CHIEF COMPLAINT: Altered mental status. HISTORY OF PRESENT ILLNESS: Ms. Saravia is a 74-year-old, white female patient not doing well lately. The patient was drinking a lot of water, eating ice all the time. The patient was staying confused, at times disoriented. History of significant weight gain, malaise. No high- grade fever or chills. The patient did have a staring episode. The patient was brought to the office. I evaluated the patient. I did some labs, which did reveal significant hyponatremia. Her potassium was 5.3. Urinalysis did reveal UTI. Her chest x-ray done revealed poor inspiration and atelectasis. Because of critically low sodium and UTI the patient was symptomatic, I decided to admit the patient for further care. The patient does have a dull headache. No typical chest pain or palpitations. No unusual cough, expectoration. The patient does have vague abdominal pain. No diarrhea, blood or mucus in the stool. Unquantified weight gain. The patient does have history of dementia, some psychosis. The patient had 2 back surgeries. She was complaining of back pain. No recent fall or head injury. History part was limited. ALLERGIES: Corticosteroid. HOME MEDICATIONS: Includes hydrochlorothiazide, Cozaar, Prilosec, aspirin, calcium with vitamin D, Tegretol, Colace, Cymbalta, vitamin D, Lopid, Synthroid, Singulair, multivitamin, Zyprexa, Klor- Con. PAST MEDICAL HISTORY: Bipolar disorder with psychosis, rhinitis, hypothyroidism, hyperlipidemia, menopause, depression, constipation, mood disorder, gastritis and reflux disease, hypertension, back surgery, chronic back pain, history of hyponatremia, recurrent UTI. PERSONAL HISTORY: Single. Denied alcohol or substance abuse. The patient is being followed up by psychiatrist. FAMILY HISTORY: Noncontributory. REVIEW OF SYSTEMS: As per HPI. PHYSICAL EXAMINATION: GENERAL: Elderly white female patient, in no acute distress. VITAL SIGNS: Blood pressure 143/47, pulse 84, respiration 18, temperature 97.7 degrees. SKIN: Senile turgor. HEENT: Head atraumatic, normocephalic. [place] conjunctivae. Anicteric sclerae. Extraocular muscle movement normal. Fundus cannot be penetrated. Good oral hygiene. No tonsillopharyngeal congestion or exudate. Ears and nose benign. NECK: Supple. No JVD, thyromegaly or lymphadenopathy. CHEST: Bibasilar crepitation. No rales. CARDIOVASCULAR: S1 and S2 heard. No gallop or thrill. ABDOMEN: Soft, globular. Bowel sounds present. Mild distention. EXTREMITIES: No cyanosis, clubbing. No acute DVT. ASSEMBLER PRODUCTION LINE: Alert, awake. Able to move all 4 limbs. Crepitation both the knee joints. Vague tenderness lumbosacral spine. LABORATORY DATA: Revealed sodium 120, potassium 5.5. Urinalysis did reveal a UTI. Chest x-ray results reviewed. I got a CT scan of the head done, which revealed no acute process identified. CONSIDERATION: 1. Urinary tract infection. 2. Hyponatremia. 3. Hypertension. 4. Hyperlipidemia. 5. Mood disorder. 6. Low back pain. 7. Gastritis. 8. Reflux disease. 9. Dementia. PLAN: Admit the patient. We will give her some IV fluid and then Lasix for free water clearance. Fall precaution. Continue her antidepressant and antipsychotic medicine. Overall plan discussed with the patient and sister. They are in agreement. cc: Alexys Nunes MD
[2019-07-15 05:40] LABS: BASO# 0.01 X1000 (0.0-0.2); BASO% 0.2 % (0.0-0.8); EOS# 0.14 X1000 (0.0-0.7); EOS% 2.4 % (0.0-10.0); HEMATOCRIT 28.5 % (37.0-47.0); HEMOGLOBIN 9.4 g/dL (12.0-16.0); IMM GRAN# 0.02 X1000 (0.0-0.04); IMM GRAN% 0.3 % (0.0-0.5); LYMPH# 1.76 X1000 (1.2-3.4); LYMPH% 29.9 % (20.5-51.1); MCH 27.2 PG (27-31); MCV 82.4 FL (81-99); MONO# 0.78 X1000 (0.11-0.59); MONO% 13.3 % (1.7-9.3); NEUT# 3.17 X1000 (1.4-6.5); NEUT% 53.9 % (42.2-75.2); PLT 360 X1000 (130-400); RBC 3.46 XMIL (4.2-5.4); RDW 13.6 % (11.5-14.5); WBC 5.88 X1000 (4.8-10.8)
[2019-07-15 05:59] LABS: AGAP 10; ALB/GLOB RATIO 1.4; ALBUMIN 3.6 g/dL (3.5-5.0); ALKALINE PHOSPHATASE 113 U/L (32-104); BUN 11 mg/dL (8-22); CALCIUM 8.4 mg/dL (8.8-10.2); CHLORIDE 94 mmol/L (98-107); COSMO 255; CREATININE 0.4 mg/dL (0.5-0.9); ESTIMATED GFR > 60; GLUCOSE 146 mg/dL (70-104); GOT 53 U/L (10-30); GPT 30 U/L (10-36); POTASSIUM 4.5 mmol/L (3.5-5.1); SODIUM 126 mmol/L (136-145); TCO2 22 mmol/L (25-35); TOTAL BILIRUBIN 0.25 mg/dL (0.20-1.00); TOTAL PROTEIN 6.1 g/dL (6.3-8.3)
[2019-07-15] MEDS: NS 1,000 ML IV SCH (06:16)
[2019-07-15] MEDS: SYNTHROID PO SCH ×2 (06:16)
[2019-07-15] MEDS ORDERED: LASIX IV ONE (06:41)
--- NOTE | 2019-07-15 07:05 | PROGRESS NOTE ---
DATE: 07/15/2019 SUBJECTIVE: Ms. Saravia is doing fair. The patient denied any fever or chills. The patient does have significant urine output. No nausea or vomiting. Denied any diarrhea. Nurse reported having Lesa type infection in the left groin. She denied any headache. No unusual cough or expectoration. No psychosis. OBJECTIVE: Vital Signs: Noted. Neck: Supple. No JVD. Lungs: Bilateral good air entry present. Cardiovascular: S1 and S2 heard. Abdomen: Soft, globular. Bowel sounds present. Central Nervous System: Alert, awake. Able to move all 4 limbs. LABORATORY DATA: Done today, hemoglobin 9.4, hematocrit 28.5, platelet count 360,000, WBC count 5.8. Her sodium was 126 potassium 4.5. PLAN/PROBLEMS: I am going to put patient on 1500 mL fluid restriction, give her a little Lasix for free water clearance. We will try Lotrisone cream for her rash in the groin. Continue rest of the treatment. Overall plan discussed with the patient, and she is in agreement. Her problems include hyponatremia, UTI, bipolar disorder and schizophrenia. She does have a history of hypertension. Overall plan discussed with the patient, and she is in agreement. cc: Alexys Nunes MD
[2019-07-15] MEDS: CALTRATE 600 + D PO SCH ×2 (08:47→20:57)
[2019-07-15] MEDS: PROTONIX IV SCH (08:47)
[2019-07-15] MEDS: SINGULAIR PO SCH (08:47)
[2019-07-15] MEDS: LOPID PO SCH ×2 (08:48→20:56)
[2019-07-15] MEDS: CYMBALTA PO SCH (08:48)
[2019-07-15] MEDS: TEGRETOL PO SCH ×2 (08:48→20:57)
[2019-07-15] MEDS: COLACE PO SCH ×2 (08:48→20:57)
[2019-07-15] MEDS: LOTRISONE CREAM TOP SCH ×2 (08:48→21:05)
[2019-07-15] MEDS: ASPIRIN PO SCH (08:48)
[2019-07-15] MEDS: LOVENOX SUBQ SCH (08:51)
[2019-07-15] MEDS: KLOR-CON PO SCH (08:51)
[2019-07-15] MEDS: ROCEPHIN 1 GM in NS 50 ML IV SCH (18:24)
[2019-07-15] MEDS: ZYPREXA PO SCH (20:56)
[2019-07-15] MEDS: THERA M PLUS PO SCH (20:57)
[2019-07-16] MEDS: NS 1,000 ML IV SCH (00:52)
[2019-07-16 05:34] LABS: BASO# 0.01 X1000 (0.0-0.2); BASO% 0.2 % (0.0-0.8); EOS# 0.14 X1000 (0.0-0.7); EOS% 3.2 % (0.0-10.0); HEMATOCRIT 30.9 % (37.0-47.0); HEMOGLOBIN 9.8 g/dL (12.0-16.0); IMM GRAN# 0.02 X1000 (0.0-0.04); IMM GRAN% 0.5 % (0.0-0.5); LYMPH# 1.85 X1000 (1.2-3.4); LYMPH% 42.6 % (20.5-51.1); MCH 26.8 PG (27-31); MCHC 31.7 g/dL (33-37); MCV 84.4 FL (81-99); MONO# 0.87 X1000 (0.11-0.59); MPV 8.9 FL (7.4-10.4); NEUT# 1.45 X1000 (1.4-6.5); NEUT% 33.5 % (42.2-75.2); PLT 350 X1000 (130-400); RBC 3.66 XMIL (4.2-5.4); RDW 13.9 % (11.5-14.5); WBC 4.34 X1000 (4.8-10.8)
[2019-07-16 05:56] LABS: AGAP 10; ALB/GLOB RATIO 1.8; ALBUMIN 3.9 g/dL (3.5-5.0); ALKALINE PHOSPHATASE 108 U/L (32-104); BUN 13 mg/dL (8-22); CALCIUM 9.2 mg/dL (8.8-10.2); CHLORIDE 96 mmol/L (98-107); COSMO 263; CREATININE 0.5 mg/dL (0.5-0.9); ESTIMATED GFR > 60; GLUCOSE 104 mg/dL (70-104); GOT 46 U/L (10-30); GPT 33 U/L (10-36); POTASSIUM 4.4 mmol/L (3.5-5.1); SODIUM 131 mmol/L (136-145); TCO2 25 mmol/L (25-35); TOTAL BILIRUBIN 0.19 mg/dL (0.20-1.00); TOTAL PROTEIN 6.1 g/dL (6.3-8.3)
[2019-07-16] MEDS: SYNTHROID PO SCH ×2 (06:32)
[2019-07-16] MEDS: KLOR-CON PO SCH (08:38)
[2019-07-16] MEDS: CALTRATE 600 + D PO SCH ×2 (08:38→20:43)
[2019-07-16] MEDS: PROTONIX IV SCH (08:38)
[2019-07-16] MEDS: LOVENOX SUBQ SCH (08:39)
[2019-07-16] MEDS: LOPID PO SCH ×2 (08:39→20:43)
[2019-07-16] MEDS: CYMBALTA PO SCH (08:39)
[2019-07-16] MEDS: SINGULAIR PO SCH (08:39)
[2019-07-16] MEDS: TEGRETOL PO SCH ×2 (08:39→20:43)
[2019-07-16] MEDS: ASPIRIN PO SCH (08:40)
[2019-07-16] MEDS: COLACE PO SCH ×2 (08:40→20:43)
[2019-07-16] MEDS: LOTRISONE CREAM TOP SCH ×2 (08:50→20:51)
[2019-07-16] MEDS: COZAAR PO SCH (10:56)
--- NOTE | 2019-07-16 11:20 | PROGRESS NOTE ---
DATE: 07/16/2019 SUBJECTIVE: Ms. Saravia is doing fair. Tolerating medication well. The patient still has some confusion according to nurses. Her sodium is improving. Complaining of mild dysuria. No nausea or vomiting. OBJECTIVE: Her vital signs noted. Neck: Supple. No JVD. Lungs: Bilateral good air entry present. CVS: S1 and S2 heard. Abdomen: Soft, globular. Bowel sounds present. IDENTITY MANAGEMENT CONSULTANT: Alert, awake, able to move all 4 limbs. LABORATORY DATA: Done today, sodium improved to 131, potassium 4.4, bilirubin 0.19. Her urine culture done on the day of admission, grew Escherichia coli which is sensitive to Rocephin. PLAN: I am going to resume her Cozaar. Continue the rest of the medication. If clinical condition permits, we will plan discharging patient home tomorrow. PROBLEM LIST: 1. Urinary tract infection. 2. Hyponatremia. 3. Dementia. 4. Mood disorder. 5. Hypothyroidism. Overall plan discussed with the patient and she is in agreement. cc: Alexys Nunes MD
[2019-07-16] MEDS: ROCEPHIN 1 GM in NS 50 ML IV SCH (18:48)
[2019-07-16] MEDS: ZYPREXA PO SCH (20:43)
[2019-07-16] MEDS: THERA M PLUS PO SCH (20:43)
[2019-07-17] MEDS: SYNTHROID PO SCH ×2 (06:07)
[2019-07-17] MEDS: CALTRATE 600 + D PO SCH ×2 (08:20→20:45)
[2019-07-17] MEDS: CYMBALTA PO SCH (08:20)
[2019-07-17] MEDS: KLOR-CON PO SCH (08:20)
[2019-07-17] MEDS: COLACE PO SCH ×2 (08:20→20:45)
[2019-07-17] MEDS: LOPID PO SCH ×2 (08:20→20:45)
[2019-07-17] MEDS: TEGRETOL PO SCH ×2 (08:20→20:45)
[2019-07-17] MEDS: SINGULAIR PO SCH (08:20)
[2019-07-17] MEDS: COZAAR PO SCH (08:20)
[2019-07-17] MEDS: ASPIRIN PO SCH (08:20)
[2019-07-17] MEDS: PROTONIX IV SCH (08:21)
[2019-07-17] MEDS: LOVENOX SUBQ SCH (08:25)
[2019-07-17] MEDS: LOTRISONE CREAM TOP SCH ×2 (08:30→20:47)
[2019-07-17] MEDS ORDERED: VITAMIN D PO SCH (09:00)
--- NOTE | 2019-07-17 10:08 | PROGRESS NOTE ---
DATE: 07/17/2019 VITAL SIGNS: Temperature 97.7 degrees, heart rate 72, respirations 19, blood pressure 168/58, O2 saturation on room air 98%. The patient states that she has some burning in her bladder. She has not gotten out of bed since being in the hospital. Chest is clear. Abdomen is soft. She is on fluid restriction, but asking for increased fluids. PLAN: Up in a chair and ambulate. If she is doing well tomorrow, she can probably be discharged then. cc: MD Alexys Spencer MD
[2019-07-17] MEDS: ROCEPHIN 1 GM in NS 50 ML IV SCH (18:42)
[2019-07-17] MEDS: ZYPREXA PO SCH (20:44)
[2019-07-17] MEDS: THERA M PLUS PO SCH (20:45)
[2019-07-18 05:58] LABS: HEMATOCRIT 33.3 % (37.0-47.0); HEMOGLOBIN 10.6 g/dL (12.0-16.0); MCH 26.8 PG (27-31); MCHC 31.8 g/dL (33-37); MCV 84.3 FL (81-99); MPV 9.1 FL (7.4-10.4); RBC 3.95 XMIL (4.2-5.4); RDW 14.1 % (11.5-14.5); WBC 5.48 X1000 (4.8-10.8)
[2019-07-18 06:10] LABS: AGAP 12; ALBUMIN 4.3 g/dL (3.5-5.0); ALKALINE PHOSPHATASE 113 U/L (32-104); BUN 14 mg/dL (8-22); CALCIUM 9.9 mg/dL (8.8-10.2); CHLORIDE 92 mmol/L (98-107); COSMO 256; CREATININE 0.5 mg/dL (0.5-0.9); ESTIMATED GFR > 60; GLUCOSE 104 mg/dL (70-104); GOT 38 U/L (10-30); GPT 34 U/L (10-36); MAGNESIUM 1.8 mg/dL (1.5-2.7); POTASSIUM 4.7 mmol/L (3.5-5.1); SODIUM 127 mmol/L (136-145); TCO2 23 mmol/L (25-35); TOTAL BILIRUBIN 0.23 mg/dL (0.20-1.00); TOTAL PROTEIN 6.4 g/dL (6.3-8.3)
[2019-07-18] MEDS: SYNTHROID PO SCH ×2 (06:20)
[2019-07-18] MEDS: LOVENOX SUBQ SCH (09:39)
[2019-07-18] MEDS: KLOR-CON PO SCH (09:39)
[2019-07-18] MEDS: TEGRETOL PO SCH ×2 (09:39→20:24)
[2019-07-18] MEDS: COZAAR PO SCH (09:39)
[2019-07-18] MEDS: PROTONIX IV SCH (09:40)
[2019-07-18] MEDS: LOPID PO SCH ×2 (09:40→20:25)
[2019-07-18] MEDS: ASPIRIN PO SCH (09:40)
[2019-07-18] MEDS: COLACE PO SCH ×2 (09:40→20:24)
[2019-07-18] MEDS: CYMBALTA PO SCH (09:40)
[2019-07-18] MEDS: CALTRATE 600 + D PO SCH ×2 (09:40→20:24)
[2019-07-18] MEDS: SINGULAIR PO SCH (09:40)
[2019-07-18] MEDS: SODIUM CHLORIDE 0.9% INJ SCH (09:40)
[2019-07-18] MEDS: LOTRISONE CREAM TOP SCH (09:41)
--- NOTE | 2019-07-18 10:24 | Diag Imaging Result Doc PS360 ---
CHEST-2 VIEWS - 07/18/2019 INDICATION: rehab placement COMPARISON: 07/14/2019 FINDINGS: There is a benign granuloma in the lateral right lung base. There is some mild platelike atelectasis in the right lung base. Otherwise, no infiltrates or edema. No pneumothorax or pleural effusion. Heart size is grossly normal. IMPRESSION: No acute process. Electronically signed by Ludwin García 07/18/2019 10:22 AM
--- NOTE | 2019-07-18 12:37 | DISCHARGE SUMMARY ---
ADMISSION DATE: 07/14/2019 DISCHARGE DATE: FINAL DISCHARGE DIAGNOSES: 1. Metabolic encephalopathy due to urinary tract infection. 2. Hyponatremia. 3. Hypertension. 4. Hypothyroidism. 5. The patient does have a history of mood disorder and schizophrenia, being followed up by psychiatrist. 6. Osteoarthritis. 7. Gastritis and reflux disease. 8. Hyperlipidemia. 9. Rhinitis. HISTORY OF PRESENT ILLNESS: Ms. Saravia is a 74-year-old, white, female patient not doing well for the last few days. The patient had confusion, weight gain. The patient was drinking more water and eating ice. She was complaining of dysuria. No high-grade fever. The patient did have some chills. I evaluated the patient in the office and decided to admit her for further care. HOSPITAL COURSE: Workup in the hospital did reveal UTI and critical hyponatremia. The patient was treated with initially IV fluid, fluid restriction. Then I gave her Lasix for free water clearance. Her clinical condition stabilized, improved. The patient was feeling weak. Family and patient requested short-term rehab and I think that will be a better idea. I decided to send her to rehab for further care. I am going to do social service consult for the same. She denied any chest pain. No headache. No nausea or vomiting. PHYSICAL EXAMINATION: Vital Signs: Noted, which were stable. Neck: Supple. No JVD. Lungs: Bibasilar crepitation. Heart: S1 and S2 heard. Abdomen: Soft, globular. Bowel sounds present. Extremities: No cyanosis, clubbing. No acute DVT. SERVICES CLERK: Alert, awake. Able to move all 4 limbs. LABORATORY DATA: Done today, hemoglobin 10.6, hematocrit 33.3, platelet count 427,000, WBC count 5.48. Sodium 127, potassium 4.7, BUN is 14, creatinine 0.5. Depakote level less than 2.8. The patient had chest x-ray done, which was benign. The patient had a urine culture done which grew E. coli. Overall, patient received maximum benefit of hospitalization. She will definitely benefit from short-term rehab and I am going to discharge her today. I discontinued her diuretics, increased Cozaar to 100 mg. We will continue Rocephin injection for a few more days. In case of more distress, call us back or go to the emergency room. Overall discharge condition satisfactory. cc: Alexys Nunes MD
[2019-07-18] MEDS: ROCEPHIN 1 GM in NS 50 ML IV SCH (17:58)
[2019-07-18] MEDS: THERA M PLUS PO SCH (20:24)
[2019-07-18] MEDS: ZYPREXA PO SCH (20:25)
[2019-07-18] MEDS ORDERED: BLISTEX MEDICATED BERRY LIP BALM TOP PRN (20:30)
[2019-07-19] MEDS: SYNTHROID PO SCH ×2 (06:23)
--- NOTE | 2019-07-19 07:41 | PROGRESS NOTE ---
DATE: 07/19/2019 SUBJECTIVE: Ms. Saravia is feeling better. She denied any fever or chills. Mental status is much improved. No nausea or vomiting. Still has dysuria. No vaginal discharge. Her confusion improved. OBJECTIVE: Blood pressure 156/57, pulse 68, respirations 19, temperature 97.5 degrees. Neck: Supple. No JVD. Lungs: Bibasilar crepitations. Heart: S1 and S2 heard. Abdomen: Soft, nontender. Bowel sounds present. ROOFER ASSISTANT: Alert, awake. Able to move all 4 limbs. PLAN: The patient does have evidence of vulvovaginitis. We are going to continue using her Lotrisone cream. The patient is on Rocephin for a urinary tract infection, which we will continue. Her discharge was canceled yesterday because a bed was not available. We will plan discharging patient home today. Overall plan discussed with the patient and family. ASSESSMENT: Her problems include: 1. Urinary tract infection. 2. Hyponatremia. 3. Vulvovaginitis. 4. Mood disorder. 5. Hypothyroidism. cc: Alexys Nunes MD
[2019-07-19 08:29] VITALS: BP 128/92
[2019-07-19] MEDS: COLACE PO SCH (09:25)
[2019-07-19] MEDS: ASPIRIN PO SCH (09:25)
[2019-07-19] MEDS: SINGULAIR PO SCH (09:25)
[2019-07-19] MEDS: COZAAR PO SCH (09:25)
[2019-07-19] MEDS: KLOR-CON PO SCH (09:25)
[2019-07-19] MEDS: TEGRETOL PO SCH (09:25)
[2019-07-19] MEDS: CYMBALTA PO SCH (09:25)
[2019-07-19] MEDS: CALTRATE 600 + D PO SCH (09:25)
[2019-07-19] MEDS: SODIUM CHLORIDE 0.9% INJ SCH (09:26)
[2019-07-19] MEDS: LOVENOX SUBQ SCH (09:26)
[2019-07-19] MEDS: LOPID PO SCH (09:26)
[2019-07-19] MEDS: PROTONIX IV SCH (09:26)
== END 2019-07-19 11:17 | DRG 689 ==
LOC: DIRADM 15:15 → 1N 16:46
PROVIDERS: ADMIT Internal Medicine; ATTEND Internal Medicine